=== PATIENT | male | born 1995 | race Caucasian/White ===

== ENCOUNTER 2021-10-06 17:03 | Emergency (ER) | payer OTHER, SELFPAY ==
[2021-10-06 19:25] VITALS: BP 126/80; PULSE 72; RESP 20; TEMP 36.3; O2SAT 98; BMI 22.4
[2021-10-06 21:15] VITALS: BP 143/84; PULSE 73; RESP 18; TEMP 36.6; O2SAT 98
[2021-10-06] MEDS: Lidocaine HCl 1 % 20 ML VIAL 10 ML INFILTRATI (21:21)
[2021-10-06] MEDS: Diphth,Pertus(ACell),Tet Adult 0.5 ML SYRINGE IM (21:21)
--- NOTE | 2021-10-07 01:52 | ED.SKABFB ---
HPI - Skin/Abscess/Foreign Bdy General Chief complaint: Skin/Abscess/Foreign Body Stated complaint: head laceration Time Seen by Provider: 10/06/21 20:44 Source: patient Mode of arrival: ambulatory Limitations: no limitations History of Present Illness HPI narrative: 26-year-old male presents for laceration on his forehead in his hairline that he sustained when he hit his head on the trunk of his car that was open. No loss of consciousness, no neck pain MD complaint: laceration Onset (ago): hour(s) (4) Tetanus up to date: no Related Data Allergies Allergy/AdvReac Type Severity Reaction Status Date / Time sulfamethoxazole Allergy Unknown Verified 10/06/21 19:33 [From Bactrim] trimethoprim [From Bactrim] Allergy Unknown Verified 10/06/21 19:33 Review of Systems Constitutional: Constitutional: Denies body ache(s), Denies chills, Denies fatigue, Denies fever(s), Denies headache(s), Denies malaise and Denies weakness Eyes: Eyes: Denies diplopia ENT: Denies vertigo, Denies dizziness, Denies otalgia, Denies headache(s), Denies mouth pain, Denies post nasal drip, Denies sinus pain, Denies sinus pressure, Denies sore throat and Denies throat swelling Cardiovascular: Cardiovascular: Denies chest pain, Denies syncope, Denies leg edema, Denies lightheadedness, Denies Loss of Consciousness, Denies palpitations and Denies dyspnea Respiratory: Respiratory: Denies chest congestion, Denies cough and Denies dyspnea Gastrointestinal: Gastrointestinal: Denies abdominal pain, Denies hematochezia, Denies constipation, Denies diarrhea and Denies vomiting Musculoskeletal: Musculoskeletal: Reports no additional musculoskeletal complaints Integumentary/Breasts: Comments: Laceration to scalp Neurologic: Denies confusion, Denies vertigo, Denies dizziness, Denies syncope, Denies headache(s) and Denies weakness Psychiatric: Psychiatric: Denies anxiety, Denies confusion and Denies depression Endocrine: Endocrine: Denies fatigue and Denies palpitations Allergic/Immunologic: Allergic/Immunologic: Denies throat swelling PMFSH Past Medical History Medical History (Updated 10/07/21 @ 00:02 by Dianelys Herron) No known health problems Social History Social History Advance Directives: No Advance Directives Information Provided: Yes Physical Exam Vital Signs: Vital Signs: Last Vital Signs Temp 97.8 F 10/06/21 21:15 Pulse 73 10/06/21 21:15 Resp 18 10/06/21 21:15 BP 143/84 H 10/06/21 21:15 Pulse Ox 98 10/06/21 21:15 BMI result Body Mass Index 22.4 Const: General: No confusion Nutritional Appearance: well nourished Orientation/consciousness: No confusion Limitations: no limitations HENMT: Head: Yes normal to inspection, Yes normocephalic and Yes atraumatic Ears: hearing grossly normal bilaterally, external ears normal, TM's normal bilaterally and EAC's normal General nose exam: Normal external nose present Face and sinus: Yes normal facial exam and Yes sinuses nontender Mouth: Normal oral and palatal mucosa present Throat: Yes posterior oropharynx normal Eyes: Conjunctivae: conjunctivae normal Pupils: Equal, round and reactive pupils present EOM: EOMs intact bilaterally Neck: Neck: Yes full ROM, Yes no lymphadenopathy and Yes supple Resp: Effort & Inspection: normal respiratory effort and able to speak in complete sentences Auscultation: clear to auscultation bilaterally, no crackles, no rales, no rhonchi and no wheezes Cardio: Rate: regular rate Rhythm: regular rhythm Heart sounds: S1 normal heart sound present and S2 normal heart sound present GI: Inspection: Yes normal to inspection Palpation (GI): Soft to palpation, nontender, no guarding and not rigid Percussion: Yes normal to percussion Auscultation: normal bowel sounds Skin: Other: 2 cm linear partial-thickness laceration to center of scalp near forehead in hairline Neuro: General: No confusion Cranial nerves: Yes Equal, round and reactive pupils present Extrem: General: Yes normal to inspection and Yes full ROM Psych: Appearance: grossly normal Affect: normal affect Attitude: cooperative Thought process: Normal thought process present Course Course Course Narrative: 3 jesus placed, tetanus given. Wound care instructions given, patient told to get jesus out in 5 days. Infection return precautions given. All questions answered Procedures Laceration Laceration 1: Site: scalp Size (cm): 2 Description: linear Depth: simple, single layer Local Anesthetic: lidocaine 1% Amount of anesthesia used (mL): 2 Pre-repair: wound explored, irrigated extensively and deep structures intact Skin layer closed with: other (jesus) Size (cm): other Number of sutures: 3 Discharge Plan Discharge Clinical Impression: Laceration of head Patient Disposition: Home, Self-Care Instructions: Head Laceration (ED) Additional Instructions: You have 3 jesus in your scalp. You need to get them removed October 11. Tomorrow evening he may take a shower and wash the wound. Pat dry and apply bacitracin. You may do this every day for the next 5 days. If the site develops redness, swelling, warmth, please return to be seen. Interventions: ED Discharge Assessment Last Done: 10/06/21 21:49 Discharge Date/Time: 10/06/21 21:49
== END 2021-10-06 21:49 | disposition home or self-care (01) ==
PROVIDERS: Emergency Provider Emergency Medicine
DX: S01.01XA Laceration without foreign body of scalp, initial encounter (principal); G44.309 Post-traumatic headache, unspecified, not intractable; W26.9XXA Contact with unspecified sharp object(s), initial encounter; Y93.9 Activity, unspecified; Y92.810 Car as the place of occurrence of the external cause; Y99.9 Unspecified external cause status
CPT/HCPCS: 12001; 90471; 90715; 99283; 99284